=== PATIENT | female | born 1970 | race Caucasian/White ===

== ENCOUNTER → 2020-01-16 13:52 | Outpatient (CLI) | payer BC, SELFPAY ==
--- NOTE | ~2020-01-16 | MM_ITS ---
EXAMINATION: MM screening [facility] BI w bryan HISTORY: Screening TECHNIQUE: Craniocaudal and mediolateral oblique 3-D tomosynthesis images were obtained and synthetic 2-D images were generated. CAD analysis was submitted and interpreted. COMPARISON: Comparison to multiple prior studies sequentially, with oldest reviewed study dated 03/07. BREAST PARENCHYMAL COMPOSITION: There are scattered areas of fibroglandular density. FINDINGS: There is no evidence of suspicious mass, calcification, or architectural distortion to sugg est malignancy in either breast. There has been no suspicious interval change. IMPRESSION: 1. No mammographic evidence of malignancy. 2. Recommend routine screening mammography in one year. BI-RADS Category 1: Negative Reviewed, dictated and finalized at location A.
== END ==
PROVIDERS: PCP Family Medicine; Visit Provider Family Medicine
DX: Z12.31 Encounter for screening mammogram for malignant neoplasm of breast (principal)
CPT/HCPCS: 77063; 77067

== ENCOUNTER → 2020-02-20 15:01 | Outpatient (CLI) | payer BC, SELFPAY ==
--- NOTE | ~2020-02-20 | MR_ITS ---
EXAMINATION: MR knee LT wo con DATE: 02/20/2020 15:54 INDICATION: Anterior left knee pain. Patellar dislocation 2 days prior. TECHNIQUE: Magnetic resonance imaging (MRI) of the left knee was performed without intravenous contra st. Sequences included coronal PD-weighted FSE, coronal PD-weighted FS FSE, sagittal T2-weighted FSE , sagittal PD-weighted FS FSE and axial PD weighted fat saturated FSE. COMPARISON: None. FINDINGS: Medial compartment: Medial meniscus is normal. Mild partial thickness cartilage loss with smooth chondral surface along t he anterior to central weightbearing medial femoral condyle. Lateral compartment: Increased intrasubstance signal in the body of the lateral meniscus which does not unambiguously cont act the articular surface consistent with mucoid degeneration without discrete tear. Mild partial thi ckness cartilage loss with smooth chondral surface along the anterior to central weightbearing latera l femoral condyle. Patellofemoral compartment: Chondral defect along the patellar apical ridge which could be chronic degenerative in etiology or re lated to a discrete chondral injury either acute or chronic. There is mild underlying subarticular cy stic change which favors chronic. There is marrow edema underlying an impaction fracture along the in ferior half of the medial patellar facet with overlying chondral fissuring likely related to an acute osteochondral injury. Mild chondral fissuring along the inferior margin of the lateral patellar face t and lateral margin of the lateral trochlea. Mild partial-thickness cartilage loss with smooth chond ral surface at the caudal aspect of the trochlear groove. Ligaments and tendons: Anterior and posterior cruciate ligaments are normal. There is a tear of the medial patellofemoral re tinaculum along its confluence with the otherwise normal-appearing medial collateral ligament. The fi bular collateral ligament complex is normal. Mild distal quadriceps tendinopathy without discrete tea r. Additional mild patellar tendinopathy with prominent at the tibial insertion where there is a prom inent enthesopathic ossicle. The visualized medial and lateral hamstring tendons as well as the iliot ibial band are normal. Fluid: Large left knee joint effusion without layering fat fluid level. No loose osteochondral bodies identi fied. There is moderate amount of edema in the subcutaneous fat and underlying soft tissues about the knee thickening along the periphery of the distal vastus medialis and within the distal aspect of th e vastus lateralis which most likely reactive although differential would include muscle strains. Osseous/other: In addition to the impaction fracture at the inferior aspect of the medial patellar facet there is a second impaction fracture with underlying marrow edema lateral nonarticular margin of the lateral fem oral condyle. Injury pattern would be consistent with the provided history of a patellar dislocation/ relocation injury. No pathologic marrow replacing process. IMPRESSION: 1. Lateral patellar dislocation/relocation injury pattern with tear of the medial patellofemoral reti naculum, osteochondral fracture at the inferior aspect of the medial patellar facet and additional im paction fracture along the lateral nonarticular surface of the lateral femoral condyle. 2. Mild tricompartmental osteoarthritis. Reviewed, dictated and finalized at location . [facility] IMPRESSION: 1. Lateral patellar dislocation/relocation injury pattern with tear of the medi al patellofemoral retinaculum, osteochondral fracture at the inferior aspect of the medial patellar facet and additional impaction fracture along the lateral nonarticular surface of the lateral femoral condyle. 2. Mild tricompartment
== END ==
PROVIDERS: PCP Family Medicine; Visit Provider Nurse Practitioner Family
DX: M17.12 Unilateral primary osteoarthritis, left knee (principal)
CPT/HCPCS: 73721

== ENCOUNTER → 2022-08-28 10:41 | Outpatient (CLI) | payer BC, SELFPAY ==
--- NOTE | ~2022-08-28 | US_ITS ---
EXAMINATION: US soft tissue head and neck DATE: 08/28/2022 11:21 INDICATION: Lymphadenopathy of head and neck. TECHNIQUE: Multiple grayscale and Doppler ultrasound images of the head and neck were obtained. COMPARISON: None FINDINGS: There is a normal superficial lymph node in posterior right neck in the patient's area of c oncern. IMPRESSION: 1. Normal superficial lymph node in posterior right neck in the patient's area of concern. Reviewed, dictated and finalized at location E.
--- NOTE | ~2022-08-28 | XR_ITS ---
EXAMINATION: XR cervical spine 4-5V DATE: 08/28/2022 11:33 INDICATION: Neck pain without injury. TECHNIQUE: 5 views of the cervical spine were obtained. COMPARISON: None. FINDINGS: Bone alignment is normal. Vertebral body heights and intervertebral disc heights are normal . The facet joints are unremarkable. No significant stenosis or prevertebral soft tissue swelling. IMPRESSION: 1. No etiology for the patient's symptoms. Reviewed, dictated and finalized at location E.
== END ==
PROVIDERS: PCP Family Medicine; Visit Provider Nurse Practitioner Family
DX: M54.2 Cervicalgia (principal); R59.1 Generalized enlarged lymph nodes; Z92.25 Personal history of immunosuppression therapy
CPT/HCPCS: 72050; 76536

== ENCOUNTER → 2023-01-28 15:35 | Outpatient (CLI) | payer BC, SELFPAY ==
--- NOTE | ~2023-01-28 | MR_ITS ---
EXAMINATION: MR cervical spine wo con DATE: 01/28/2023 16:20 INDICATION: Neck pain. TECHNIQUE: Magnetic resonance imaging (MRI) of the cervical spine was performed without intravenous c ontrast. COMPARISON: Cervical spine radiographs 08/28/22 FINDINGS: There is mild kyphosis of cervical spine. There is mild chronic anterior wedging of C7 vert ebral body. Intervertebral disc heights are normal. The spinal cord signal intensity is normal. The f ollowing disc levels are specifically discussed: C2-C3: The disc does not extend beyond the endplate margin. There is no uncovertebral joint osteoarth ritis. There is severe left facet joint osteoarthritis. There is mild left neural foraminal stenosis. There is no central canal stenosis. C3-C4: The disc does not extend beyond the endplate margin. There is no uncovertebral joint osteoarth ritis. There is severe right and mild left facet joint osteoarthritis. There is no neural foraminal s tenosis. There is no central canal stenosis. C4-C5: The disc is bulging. There is mild bilateral uncovertebral joint osteoarthritis. There is mode rate right and severe left facet joint osteoarthritis. There is mild bilateral neural foraminal steno sis. There is mild central canal stenosis. C5-C6: The disc does not extend beyond the endplate margin. There is mild bilateral uncovertebral keturah nt osteoarthritis. There is moderate and severe left facet joint osteoarthritis. There is mild left n eural foraminal stenosis. There is no central canal stenosis. C6-C7: There is a central protrusion. There is no uncovertebral joint osteoarthritis. There is no fac et joint osteoarthritis. There is no neural foraminal stenosis. There is mild central canal stenosis. C7-T1: There is a central protrusion. There is no uncovertebral joint osteoarthritis. There is modera te right and mild left facet joint osteoarthritis. There is no neural foraminal stenosis. There is no central canal stenosis. IMPRESSION: 1. Mild cervical spondylosis. Reviewed, dictated and finalized at location E.
== END ==
PROVIDERS: Visit Provider Family Medicine
DX: R55 Syncope and collapse (principal); K51.918 Ulcerative colitis, unspecified with other complication; M49.80 Spondylopathy in diseases classified elsewhere, site unspecified; K51.90 Ulcerative colitis, unspecified, without complications; E03.9 Hypothyroidism, unspecified; I10 Essential (primary) hypertension; M47.892 Other spondylosis, cervical region
CPT/HCPCS: 72141